=== PATIENT | female | born 1995 | race Caucasian/White ===

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

== ENCOUNTER 2017-01-02 12:54 | Emergency (ER) | payer SELFPAY | END 2017-01-02 14:28 | disposition home or self-care (01) | LOC: D.ER 12:54 | DX: R51 Headache (principal); F17.200 Nicotine dependence, unspecified, uncomplicated ==

== ENCOUNTER 2019-01-30 18:15 | Emergency (ER) | payer SELFPAY ==
[~2019-01-30] VITALS: Ht 160 cm; Wt 63.2 kg
[2019-01-30 18:22] VITALS: Ht 160 cm; Wt 63.2 kg
[2019-01-30 18:58] LABS: BASOPHILS 0.1 % (0-2); EOSINOPHILS 0.2 % (0-7); HEMATOCRIT 40.5 % (36.0-48.0); HEMOGLOBIN 13.1 g/dL (12-16); IMMATURE GRANULOCYTES 0.3 % (0-5); LYMPHOCYTES 5.7 % (15-50); MCH 26.7 pg (26.0-34.0); MCHC 32.3 g/dL (31.0-37.0); MCV 82.5 fL (80.0-100.0); MEAN PLATELET VOLUME 9.5 fL (7.4-10.4); MONOCYTES 3.4 % (2-11); NEUTROPHILS 90.3 % (40-80); PLATELET COUNT 239 10x3/uL (130-400); RBC 4.91 10x6/uL (4.00-5.40); RDW 14.3 % (11.5-14.5); WBC 14.9 10x3/uL (4.8-10.8)
[2019-01-30 19:06] LABS: APPEARANCE HAZY (CLEAR); BILIRUBIN NEGATIVE (NEGATIVE); COLOR STRAW (YELLOW); GLUCOSE NEGATIVE (NEGATIVE); KETONE SMALL mg/dL (NEGATIVE); NITRITE NEGATIVE (NEGATIVE); PROTEIN NEGATIVE (NEGATIVE); UROBILINOGEN NORMAL (NORMAL)
[2019-01-30 19:07] LABS: BACTERIA MODERATE /hpf (NEGATIVE); EPITHELIAL CELLS 0-5 /hpf (0-5); HCG URINE NEGATIVE (NEGATIVE); RED CELLS - URINE 0-5 /hpf (0-5); WHITE CELLS - URINE 25-50 /hpf (NEGATIVE)
[2019-01-30 19:10] LABS: CALC OSMOLALITY 276 mosm/kg (275-300); CALCIUM 8.8 mg/dL (8.5-10.1); CARBON DIOXIDE 27.4 mmol/L (21.0-32.0); CHLORIDE - SERUM 103 mmol/L (98-107); CREATININE - SERUM 0.7 mg/dL (0.6-1.3); GLUCOSE 88 mg/dL (74-106); POTASSIUM - SERUM 3.3 mmol/L (3.5-5.1); SODIUM 139 mmol/L (136-145); UREA NITROGEN 13 mg/dL (7-18); eGFR NON AFRICAN AMERICAN > 90 mL/min (90-120)
[2019-01-30 19:16] LABS: ALBUMIN 4.1 g/dL (3.4-5.0); ALKALINE PHOSPHATASE 94 U/L (46-116); ALT (SGPT) 15 U/L (10-68); PROTEIN - SERUM 7.8 g/dL (6.4-8.2)
[2019-01-30] MEDS ORDERED: CYCLOBENZAPRINE10 MG PO (21:10)
[2019-01-30] MEDS ORDERED: ACETAMINOPHEN500 M1 PO (21:10)
[2019-01-30] MEDS ORDERED: KEFLEX500 MG PO (21:10)
[2019-01-30] MEDS ORDERED: IBUPROFEN800 MG PO (21:10)
[2019-01-30] MEDS ORDERED: MACROBID100 MG PO (21:10)
[2019-01-30 21:30] VITALS: BP 139/71
== END 2019-01-30 21:24 | disposition home or self-care (01) ==
LOC: D.ER 18:15
PROVIDERS: Emergency Medicine
DX: N39.0 Urinary tract infection, site not specified (principal)